=== PATIENT | male | born 1975 | race Caucasian/White ===

== ENCOUNTER 2019-03-25 10:12 | Day surgery (SDC) | payer OTHER ==
[2019-03-20 14:19] VITALS: BMI 28.5
--- NOTE | 2019-03-25 12:56 | HP ---
Admitting History and Physical - Admission Chief Complaint: Umbilical hernia with pain History Source: Patient Limitations to Obtaining History: No Limitations - Smoking History Smoking history: Never smoked - Alcohol/Substance Use Hx Alcohol Use: No Home Medications - Allergies Allergies/Adverse Reactions: Allergies Allergy/AdvReac Type Severity Reaction Status Date / Time No Known Allergies Allergy Verified 03/25/19 10:56 - Home Medications Home Medications: Ambulatory Orders Primidone [Mysoline -] 50 mg PO DAILY 03/20/19 Propranolol HCl [Inderal LA] 160 mg PO DAILY 03/20/19 Family Disease History - Family Disease History Family History: Unremarkable Review of Systems - Review of Systems Constitutional: denies: Chills, Fever Cardiovascular: reports: No Symptoms Respiratory: reports: No Symptoms Gastrointestinal: reports: Abdominal Pain (at umbilical hernia) Neurological: reports: No Symptoms Pain Intensity: 3 Physical Examination Vital Signs: Vital Signs Temperature 98.2 F 03/25/19 10:40 Pulse Rate 62 03/25/19 10:40 Respiratory Rate 20 03/25/19 10:40 Blood Pressure 121/83 03/25/19 10:40 O2 Sat by Pulse Oximetry (%) 97 03/25/19 10:40 Constitutional: Yes: Calm Neck: Yes: WNL Cardiovascular: Yes: WNL Respiratory: Yes: Regular Gastrointestinal: Yes: Soft, Other (+umbilical hernia, tender on palpation) Neurological: Yes: Alert, Oriented Problem List - Problems (1) Umbilical hernia Code(s): K42.9 - UMBILICAL HERNIA WITHOUT OBSTRUCTION OR GANGRENE Qualifiers: Obstruction and gangrene presence: without obstruction or gangrene Qualified Code(s): K42.9 - Umbilical hernia without obstruction or gangrene Assessment/Plan Umbilical hernia with pain Open umbilical hernia possible mesh
[2019-03-25] MEDS ORDERED: EPINEPHrine/PF 1 MG/1 ML (1:1,000) AMPULE ONE (13:40)
[2019-03-25] MEDS ORDERED: LIDOCAINE HCL 1% PRESERVATIVE FREE - 30ML VIAL ONE (13:41)
[2019-03-25] MEDS ORDERED: fentaNYL CITRATE 250 MCG/5 ML VIAL ONE (13:45)
[2019-03-25] MEDS ORDERED: MIDAZOLAM HCL 2 MG/2 ML SINGLE DOSE VIAL ONE (13:46)
[2019-03-25] MEDS ORDERED: ROCURONIUM BROMIDE 50 MG/5 ML VIAL ONE (13:46)
[2019-03-25] MEDS ORDERED: PROPOFOL 20 ML ONE ×3 (13:46)
[2019-03-25] MEDS ORDERED: BACITRACIN 15 GM TUBE TOPICAL OINTMENT ONE (13:55)
[2019-03-25] MEDS ORDERED: DEXAMETHASONE SOD PHOSPHATE 4 MG/1 ML VIAL ONE (14:31)
[2019-03-25] MEDS ORDERED: ceFAZolin SODIUM 1 GM VIAL ONE (14:31)
[2019-03-25] MEDS ORDERED: ONDANSETRON 4 MG/2 ML VIAL ONE ×2 (14:31→15:54)
[2019-03-25] MEDS ORDERED: KETOROLAC TROMETHAMINE 30 MG/1 ML VIAL ONE ×2 (14:31→15:54)
--- NOTE | 2019-03-25 15:10 | OP ---
Operative Note - Note: Operative Date: 03/25/19 Pre-Operative Diagnosis: Umbilical hernia with pain Operation: Open umbilical hernia repair Post-Operative Diagnosis: Same as Pre-op Surgeon: Rajesh Kapoor Occupational Safety Specialist: Jose Amin Anesthesia: General Specimens Removed: Hernia content Estimated Blood Loss (mls): 5 Operative Report Dictated: Yes
[2019-03-25] MEDS ORDERED: BACITRACIN 15 GM TUBE TOPICAL OINTMENT TP ONE (15:37)
[2019-03-25] MEDS ORDERED: LIDOCAINE HCL/PF 2% SDV 5ML VIAL ONE (15:54)
[2019-03-25] MEDS ORDERED: ONDANSETRON 4 MG/2 ML VIAL IVPUSH PRN (17:11)
[2019-03-25] MEDS ORDERED: ACETAMINOPHEN 1000 MG/100 ML VIAL (NON FORMULARY) IVPB ONE (17:11)
[2019-03-25] MEDS ORDERED: oxyCODONE HCL 5 MG TABLET PO PRN ×4 (17:11→17:27)
[2019-03-25] MEDS ORDERED: LACTATED RINGERS SOLUTION 1,000 ML IV SCH ×2 (17:15→17:30)
[2019-03-25] MEDS ORDERED: ONDANSETRON 4 MG/2 ML VIAL IVPB PRN (17:27)
--- NOTE | 2019-03-25 17:32 | OP ---
Operative Note - Note: Operative Date: 03/25/19 Pre-Operative Diagnosis: abdominal lipodystrophy Operation: abdominal and flank liposuction Post-Operative Diagnosis: Same as Pre-op Surgeon: Jose Amin Anesthesia: General
[2019-03-25] MEDS ORDERED: oxyCODONE HCL 5 MG TABLET ONE (17:55)
[2019-03-25 19:57] VITALS: BP 100/62; PULSE 60; TEMP 97.7
--- NOTE | 2019-03-26 06:16 | OP ---
DATE OF OPERATION: 03/25/2019 SURGEON: Erick Kapoor MD PRIMARY CARE SALES REPRESENTATIVE: Jose Amin MD PREOPERATIVE DIAGNOSES: Umbilical hernia with pain. POSTOPERATIVE DIAGNOSES: Umbilical hernia with pain. PROCEDURE: Open umbilical hernia repair with primary repair. SPECIMEN: Hernia content. ESTIMATED BLOOD LOSS: 5 mL. DRAINS: None. ANESTHESIA: GET. REASON FOR PROCEDURE: This is a 44-year-old gentleman who presents for evaluation of an umbilical hernia that is causing him pain. The different options were discussed, and he decided to proceed with an open umbilical hernia possible mesh. The risks and benefits of the procedure were explained. These included bleeding, infection, recurrence of hernia, [place], DVT, PE, and injury to surrounding structures including bowel vessel injury, nerve injury, chronic pain, mesh infection, and some other complications. He understood and signed informed consent. DESCRIPTION OF PROCEDURE: The patient was placed supine on the operating room table and underwent general endotracheal intubation. The abdomen was prepped and draped in the usual sterile fashion. A timeout was performed. An infraumbilical curvilinear incision was made down to the skin and subcutaneous tissue to the level of the fascia. The hernia sac was dissected, and the circumferential rim of fascia noted. Omentum was noted to be incarcerated within the VAC and carefully dissected and pushed down into the intraabdominal cavity. Hernia content was excised and sent off the field. The fascia was grasped with Karmen clamps and closed using 0 Ethibond suture in figure-of-8 fashion x2. Then, 3-0 Vicryl was used to tack the umbilicus to the fascia. Patient tolerated the procedure well. He remained in the operating room where Dr. Jose Amin continued with his portion of the procedure, which was abdominal and flank liposuction. ERICK KAPOOR M.D. [id number]
--- NOTE | 2019-03-26 07:34 | OP ---
DATE OF OPERATION: 03/25/2019 ATTENDING SURGEON: Jose Amin MD TITLE OF PROCEDURE: Abdominal and flank liposuction. PREOPERATIVE DIAGNOSIS: Abdominal flank lipodystrophy. POSTOPERATIVE DIAGNOSIS: Abdominal flank lipodystrophy. The procedure was performed in combination with an umbilical hernia repair performed by Dr. Rajesh Kapoor. That portion of the procedure will be dictated separately by Dr. Kapoor. DESCRIPTION OF PROCEDURE: The patient was marked in the holding area, counseled on all risks, benefits, and alternatives to the procedure as well as its limitations, understands, and agrees to proceed. He is awake and aware of the incisions and resulting scars. Sequential compression stockings and JEFFREY hose were applied. Patient was brought to the operating room, placed in a supine position. Two grams of Ancef were given. Pillow was placed below the knees. Positioning was carefully checked by surgical and anesthesia teams. He was prepped and draped in standard surgical fashion. A time-out was called. Patient, procedure, side, and sites were verified. At this point, Dr. Kapoor scrubbed into the operation, and he performed the umbilical hernia repair, which was completed prior to my infiltration of wetting solution. Once this was completed, the infiltration was performed using a standard infiltrating system. The wetting solution is for the first 2 L, 1 L of LR with 1 ampule of 1:1000 epinephrine and 20 mL of 1% lidocaine plain. bag contained 1 ampule of 1:1000 epinephrine only without any lidocaine. A total of 2800 mL of wetting solution was infiltrated and a full 25 minutes was awaited prior to any liposuction. Once liposuction was performed, a SAFE technique was performed pre- and post-tunneling using basket-tipped cannulas. After this was completed, liposuction was performed with a combination of 4and 5 mm cannulas using a [employer] Power Assisted Liposuction System. The lipoaspirates were as follows: From the right flank, 650 mL, from the left flank, 550 mL, and from the abdomen, 1750 mL, total lipoaspirate of exactly 3 L. The end-point was smooth, even contour, and the appearance of beginning of blood within lipoaspirate. At this point, post-tunneling was performed with a 4 mm basket-tipped cannula, after which, the liposuction incisions were closed with a series of interrupted 5-0 nylon sutures. Umbilical hernia repair site was closed with a series of interrupted buried deep dermal 4-0 Monocryl sutures followed by running subcuticular 4-0 Monocryl sutures, several 5-0 nylon sutures were used to perfect that closure. Dressings were applied with Bacitracin, eye patches, Tegaderm, and an abdominal binder. The patient was awoken from anesthesia having tolerated the procedure well, was transferred to recovery without complications. Alonso [id number]
--- NOTE | 2019-03-27 16:23 | PATH ---
Surgical Pathology Report Patient Name: JUSTINA GUZMÁN [facility]. Rec. #: [id number] /Age/Gender: 1975 (Age: 44) / M Account: [id number] Location: [facility] AMBULATORY Taken: 03/25/2019 Received: 03/25/2019 Reported: 03/27/2019 Physicians: Jose Amin Specimen(s) Received UMBILICAL HERNIA SAC Clinical History Umbilical hernia Final Diagnosis UMBILICAL HERNIA SAC, REPAIR: FIBROCOLLAGENOUS TISSUE. Electronically Signed Mary Hartley M.D. Gross Description Received in formalin labeled "umbilical hernia sac," is a 0.8 x 0.6 x 0.3 cm elias adair portion of fibrous tissue. The specimen is bisected and entirely submitted in one cassette. /03/26/2019 saudi03/26/2019
== END 2019-03-25 19:50 | disposition home or self-care (01) ==
LOC: FASU 10:12
PROVIDERS: ATTEND Plastic Surgery
PROC: 0WQF0ZZ Repair Abdominal Wall, Open Approach (ICD-10-PCS; principal; 2019-03-25 14:50)
PROC: 0J083ZZ Alteration of Abdomen Subcutaneous Tissue and Fascia, Percutaneous Approach (ICD-10-PCS; 2019-03-25 14:50)
DX: K42.9 Umbilical hernia without obstruction or gangrene (principal); E88.1 Lipodystrophy, not elsewhere classified
CPT/HCPCS: 88302-TC; 94760; J0131